=== PATIENT | female | born 1995 | race Caucasian/White ===

== ENCOUNTER 2022-08-16 13:34 | Emergency (ER) | payer BC ==
[~2022-08-16] VITALS: Ht 165 cm; Wt 92.0 kg
--- NOTE | 2022-08-16 14:11 | ED Headache ---
General Chief Complaint: Cardiac/General Problems Stated Complaint: HIGH BLOOD PRESSURE Nursing Triage Note: HX OF HYPERTENSION. TODAY IS THE HIGHEST. HAS SCHEDULED APPT WITH CARDIOLGIST SOON. WAS SEEN AT URGENT CARE SUNDAY AND SEES MIKE ROA. PT COMPLAINS OF FACE BEING FLUSHED, SOA, AND A HEADACHE. ALSO THINKS ONE PUPIL IS LARGER THEN THE OTHER. (JAYMIE BORRERO) History of Present Illness Date Seen by Provider: Aug 16, 2022 Time Seen by Provider: 13:50 Initial Comments 27 yo female with hx of HTN presents to the ED with higher blood pressure than usual. Pt says that today at 12 her blood pressure was 152/100, pt rechecked it at 1300 and it was 161/120 and at 1320 it was 184/122. At 1320 she also experie nced flushing and ORTIZ. Has associated SOA on exertion. Has hx of ocular migraines and pt notes that this ORTIZ is similar. Located behind her right eye. Rates pain a 4/10. Denies CP, fever, numbness/tingling, lightheaded/dizziness, N/V. No other complaints. Associated Symptoms: flushing (JAYMIE BORRERO) Initial Comments Patient is presently under work-up in the outpatient setting for these issues. Marii Roa is her primary care provider. She has referral to cardiology coming up soon as well as an order for CT of the head. She reports labs were performed within the last week and those have not yet been reviewed with Marii. She has been taking her prescribed medications. She was prescribed clonidine recently in the urgent care setting but has not started that medication yet. She uses Microgestin control pills and has used them since age 13. She has severe mood instability related to her cycles without the Microgestin. (GALILEA JEROME MD) Allergies and Home Medications Allergies Coded Allergies: Penicillins (Verified Allergy, Severe, EDEMA, 08/16/22) Patient Home Medication List Home Medication List Reviewed: Yes (JAYMIE BORRERO) Review of Systems Review of Systems Constitutional: no symptoms reported Eyes: No Symptoms Reported Ears, Nose, Mouth, Throat: no symptoms reported Respiratory: short of breath Cardiovascular: no symptoms reported Gastrointestinal: no symptoms reported Genitourinary: no symptoms reported Musculoskeletal: no symptoms reported Skin: no symptoms reported Psychiatric/Neurological: Headache (JAYMIE BORRERO) All Other Systems Reviewed Negative Unless Noted: Yes (JAYMIE BORRERO) Past Zwittss-Zukrca-Pkaazv Hx Patient Social History Tobacco Use?: No Smoking Status: Never a Smoker Substance use?: No Alcohol Use?: Yes Alcohol Frequency: Once in a while (JAYMIE BORRERO) Immunizations Up To Date Tetanus Booster (TDap): Unknown Second COVID19 Vaccination Mateusz: UNKNOWN COVID19 Vaccine Sox Analyst: PHIZER (JAYMIE BORRERO) Past Medical History Adenoidectomy, Tonsillectomy Reproductive Disorders: No Sexually Transmitted Disease: No HIV/AIDS: No Adverse Reaction/Blood Tranf: No (JAYMIE BORRERO) Physical Exam Vital Signs Vital Signs - First Documented 08/16/22 13:40 Temp 37.3 Pulse 110 Resp 16 B/P (MAP) 153/105 (121) Pulse Ox 97 O2 Delivery Room Air (GALILEA JEROME MD) Vital Signs Capillary Refill : Less Than 3 Seconds (JAYMIE BORRERO) Height, Weight, BMI Height: 5'5" Weight: 140lbs. oz. 63.520436ph; 33.00 BMI Method:Actual General Appearance: WD/WN, no apparent distress HEENT: PERRL/EOMI, normal ENT inspection, TMs normal, pharynx normal Neck: non-tender, full range of motion, supple, normal inspection Cardiovascular: regular rate, rhythm, no edema, no gallop, no JVD, no murmur Respiratory: chest non-tender, lungs clear, normal breath sounds, no respiratory distress, no accessory muscle use Gastrointestinal: normal bowel sounds, non tender, soft, no organomegaly, no pulsatile mass Back: normal inspection, no CVA tenderness, no vertebral tenderness Extremities: normal range of motion, non-tender, normal inspection, no pedal edema, no calf tenderness Psychiatric: alert, oriented x 3 Crainal Nerves: normal hearing, normal speech, PERRL; No abnormal speech, No facial asymmetry, No facial droop, No facial paresthesias, No facial weakness, No hearing deficit (R), No hearing deficit (L) Motor/Sensory: no motor deficit, no sensory deficit Skin: normal color, warm/dry Lymphatic: no adenopathy (JAYMIE BORRERO) Progress/Results/Core Measures Results/Orders Vital Signs/I&O 08/16/22 08/16/22 13:40 15:11 Temp 37.3 Pulse 110 88 Resp 16 18 B/P (MAP) 153/105 (121) 125/89 Pulse Ox 97 97 O2 Delivery Room Air Room Air (GALILEA JEROME MD) Blood Pressure Mean: 121 Progress Progress Note : Progress Note Patient's blood pressure was normalizing. After review of her history and medications, I advised that she discuss stopping Microgestin with her prescribing provider. She appears to be developing new migraines and estrogen containing products are relatively contraindicated with estrogen use. I am also concerned that the Microgestin may be triggering hypertension and headaches. She needs to discuss this promptly with her prescribing provider. I have also advised her to not use clonidine unless really needed as may cause problems with rebound hypertension and may cause sedation. I additionally recommended that she increase her daytime metoprolol dose to 100 mg. She has been taking 50 mg twice daily and notes that her blood pressure is much lower in the morning and escalates throughout the day. See discharge instructions for further discussion. No specific treatments were rendered in the ER and evaluation was unremarkable. (GALILEA JEROME MD) Departure Impression Primary Impression: Labile hypertension Additional Impression: Migraine headache Qualified Codes: G43.909 - Migraine, unspecified, not intractable, without status migrainosus Disposition: 01 HOME, SELF-CARE Condition: Improved Departure-Patient Inst. Decision time for Depature: 14:59 (GALILEA JEROME MD) Referrals: NO,LOCAL PHYSICIAN (PCP/Family) Primary Care Physician Patient Instructions: High Blood Pressure in Adults, Migraines in Adults Add. Discharge Instructions: Based on your blood pressure patterns, I am recommending you increase your morning metoprolol to 100 mg and keep your evening metoprolol at 50 mg. Because you are having migraine type headaches, you should discuss an alternative control with Hayden Tavares. Migraines are a relative contraindication to using estrogen hormones. Use of estrogen hormones in people with a history of migraines can increase stroke risk. Additionally, estrogen containing medications CAD cause high blood pressure and headaches. Discuss your thyroid labs with Marii Roa to determine if an adjustment needs to be made to your medication. Also discuss your vitamin D dosing. You may benefit from short-term high-dose vitamin D replacement for a few months. If you have an extreme spike in blood pressure again while you are at work, I would recommend lying down and resting for 5 to 10 minutes in a quiet environment. Recheck at that time. If blood pressure is still extremely high, you may take the clonidine as prescribed. Return to the emergency room if you have worsening symptoms despite following these instructions. For treatment of migraine you may try ibuprofen up to 600 mg every 6 hours as needed and/or Tylenol (acetaminophen) up to 1000 mg every 6 hours as needed. Migraines also respond well to rest in a quiet, calm environments. All discharge instructions reviewed with patient and/or family. Voiced understanding. Copy Copies To 1: HAYDEN TAVARES Copies To 2: KAM ROA ANISHA T Aug 16, 2022 14:11 GALILAE JEROME MD Aug 16, 2022 15:03
[2022-08-16 15:11] VITALS: BP 125/89
== END 2022-08-16 15:11 | disposition home or self-care (01) ==
LOC: EDUNIT# 13:34 → ER 13:40
DX: R09.89 Other specified symptoms and signs involving the circulatory and respiratory systems (principal); I10 Essential (primary) hypertension; G43.909 Migraine, unspecified, not intractable, without status migrainosus
CPT/HCPCS: 99281

== ENCOUNTER 2022-08-30 13:23 | Outpatient (RCR) | payer BC ==
[2022-08-30] MEDS ORDERED: CATHETER FLUSH 10 ML SYR IV PRN (13:30)
[2022-08-30] MEDS ORDERED: NS 100 ML (IVPB) BAG IV ONE (13:30)
[2022-08-30] MEDS ORDERED: IOHEXOL 350 MG/ML 100 ML (OMNIPAQUE 350) VIAL IV ONE (13:30)
[2022-08-30] MEDS ORDERED: HOLD METFORMIN - RECEIVED CONTRAST 20 ML VIAL IV SCH (13:30)
--- NOTE | 2022-08-30 15:04 | Diagnostic Imaging Report ---
PROCEDURE: CT abdomen and pelvis with contrast. TECHNIQUE: Multiple contiguous axial images were obtained through the abdomen and pelvis after administration of intravenous contrast. Auto Exposure Controls were utilized during the CT exam to meet ALARA standards for radiation dose reduction. All CT scans use one or more of the following dose optimizing techniques: Automated exposure control, MA and/or KvP adjustment based on patient size and exam type or iterative reconstruction. INDICATION: Elevated blood pressure. No prior studies are available for comparison. FINDINGS: The lung bases are clear. Liver and gallbladder are unremarkable. There is no biliary ductal dilatation. The pancreas and spleen are unremarkable. No adrenal mass is detected. Kidneys are unremarkable. No definite calculi or hydronephrosis is identified. Aorta is nonaneurysmal. The small and large bowel loops are normal in caliber. There is no obstruction. No free fluid or fluid collection is seen. The uterus and bladder are unremarkable. The bony structures are nonacute. IMPRESSION: Unremarkable CT of the abdomen and pelvis with contrast. No significant abnormality is detected. Dictated by: Dictated on workstation # [id number]
[2022-08-30 16:36] LABS: ALBUMIN 4.4 GM/DL (3.2-4.5)
[2022-08-30 16:37] LABS: POTASSIUM 3.4 MMOL/L (3.6-5.0)
[2022-08-30 16:38] LABS: CALCIUM 9.9 MG/DL (8.5-10.1)
[2022-08-30 16:39] LABS: TOTAL PROTEIN 7.6 GM/DL (6.4-8.2)
[2022-08-30 16:41] LABS: BILIRUBIN,TOTAL 0.3 MG/DL (0.1-1.0)
[2022-08-30 16:43] LABS: CREATININE SERUM 0.79 MG/DL (0.60-1.30)
[2022-08-30 17:28] LABS: CREATININE CRCL 0.78 MG/DL (0.60-1.30)
[2022-09-07 13:12] LABS: URINE VOLUME CAT 1200 mL
== END 2022-09-02 | disposition home or self-care (01) ==
LOC: RAD 13:23 → EDSTATUS 13:45
PROVIDERS: ATTEND Internal Medicine Cardiovascular Disease
DX: I15.9 Secondary hypertension, unspecified (principal)
CPT/HCPCS: 74177; 80053; 82384; 82575; 83497; 83835; 84585; C8929; 36415; 93306

== ENCOUNTER → 2023-05-21 | Outpatient (CLI) | payer BC ==
--- NOTE | 2023-05-21 16:20 | Diagnostic Imaging Report ---
PROCEDURE: Pelvic comp/transvaginal sonogram. TECHNIQUE: Complete transabdominal and transvaginal pelvic ultrasound was performed. In addition, limited pelvic Doppler was performed. INDICATION: Lower quadrant pain. Uterus is anteverted measuring 6.2 x 2.8 x 4.3 cm. Endometrium is 6 mm in thickness. An IUD appears to be appropriately centered in the endometrial canal. No myometrial mass is identified. Right ovary measures 2.5 x 1.0 x 1.9 cm and left ovary measures 2.4 x 0.8 x 1.4 cm. There is blood flow to both ovaries. No adnexal mass or free fluid is detected. IMPRESSION: The IUD appears to be appropriately centered in the endometrial canal. The study is unremarkable. Dictated by: Dictated on workstation # [id number]
== END ==
LOC: RAD 14:15
PROVIDERS: ATTEND Nurse Practitioner
DX: R10.31 Right lower quadrant pain (principal); Z97.5 Presence of (intrauterine) contraceptive device
CPT/HCPCS: 76830; 76856